=== PATIENT | male | born 1995 | race African-American/Black ===

== ENCOUNTER 2016-12-17 18:16 | Emergency (ER) ==
[2016-12-17] MEDS ORDERED: NS 1,000 ML IV ONE ×2 (19:57→22:25)
--- NOTE | 2016-12-17 20:20 | PROVIDER DOCUMENTATION ---
HPI-Abdominal Pain/GI Problem - General Chief Complaint: N/V/D Stated Complaint: ABD PAIN, N/V/D Time Seen by Provider: 12/17/16 19:55 Source: patient Allergies/Adverse Reactions: Patient Allergies Allergy/AdvReac Type Severity Reaction Status Date / Time No Known Allergies Allergy Verified 12/17/16 20:22 Home Medications: Home Medication List Medication Instructions Recorded Confirmed Last Taken Type No Home Medications 12/17/16 12/17/16 Unknown History - History of Present Illness-ABD Nature of Presenting Problems: Pt is a 21 yom who presents to ER with CC of N/V/D with onset this am. Pt reports that he woke up with epigastric pain, started to vomit and have diarrhea. Pt reports that his diarrhea was originally green, but has since turned more clear/yellow. Pt did not specify number of vomit/diarrhea episodes. Pt denies F/chills, or sick contacts. Abdominal Pain Onset Location: reports: epigastric Pain Radiation: reports: no radiation Quality of Pain: reports: aching, cramping Severity in ED: reports: mild Onset/Duration: reports: this morning Timing: reports: intermittent Activities at Onset: reports: rest, sleep Associated Symptoms: reports: diarrhea, loss of appetite, muscle aches, nausea, vomiting. denies: anxiety, arm pain, back/neck pain, chest pain, constipation, cough, diaphoresis, dizziness, EENT symptoms, fatigue, fever/chills, genitourinary problems, headaches, heartburn, joint pain, malaise, sinus congestion/drainage, rash, seizure, shortness of breath, sensory/motor loss, pain with inspiration, swelling/mass in abdomen, syncope, weakness, trouble walking Last BM: other (prior to exam) Dark Stools Present?: reports: none noticed Rectal Bleeding: reports: none Rectal Pain: reports: none Emesis Description: reports: none Review of Systems - Adult - REVIEW OF SYSTEMS - ADULT Constitutional: denies: chills, fever, fatique, night sweats, weight gain, weight loss Eyes: reports: no symptoms reported Ears, Nose, Mouth & Throat: denies: ear discharge, ear pain, hearing loss, sinus problem, nose pain, hoarseness, throat pain, throat swelling Cardiovascular: reports: no symptoms reported Respiratory: denies: cough, dyspnea on exertion, excessive sputum production, shortness of breath, wheezing Gastrointestinal: reports: abdominal pain, diarrhea, nausea, poor appetite, vomiting. denies: hematemesis, constipation, difficulty swallowing, frequent heartburn, rectal bleeding Genitourinary: reports: no symptoms reported Musculoskeletal: reports: no symptoms reported Integumentary: reports: no symptoms reported Neurological: reports: no symptoms reported Psychiatric: reports: no symptoms reported Endocrine: reports: no symptoms reported Hematologic/Lymphatic: reports: no symptoms reported Allergic/Immunologic: reports: no symptoms reported All Other Systems: Reviewed and Negative Past History - Adult - PAST MEDICAL HISTORY-ADULT Review of Records: reports: Nursing Assessment Review, Medications Reviewed Musculoskeletal: reports: orthopedic injury - IMMUNIZATION STATUS Childhood Immunizations: See Nurse Assessment Flu Vaccine: See Nurse Assessment Physical Exam-General - PHYSICAL EXAM-ADULT Initial Vital Signs Reviewed: Yes - CONSTITUTIONAL General Appearance: appears well, alert, no apparent distress, lethargic, slow to respond. negative: mild distress, moderate distress, severe distress, cachetic, obese, thin, anxious, obtunded, combative - NECK Neck: non-tender, full range of motion, supple. negative: C-spine tenderness, limited range of motion, lymphadenopathy - RESPIRATORY Respiratory: chest non-tender, lungs clear, normal breath sounds. negative: respiratory distress, decreased breath sounds, accessory muscle use, wheezing - CARDIOVASCULAR Cardiovascular: normal peripheral pulses, regular rate, rhythm. negative: bradycardia, tachycardia - GASTROINTESTINAL (ABDOMEN) Abdominal Exam: normal bowel sounds, soft, tenderness (epigastric). negative: non tender, abnormal bowel sounds, mass - NEUROLOGIC Neurologic: grossly normal, no motor/sensory deficits - PSYCHIATRIC Psych/Mental Status: normal thought content, normal thought process, oriented x 3, depressed affect. negative: normal mood/affect Progress - PLAN OF CARE/RESULTS Progress/Plan/Lab Results: Vital Signs - 24 hr 12/17/16 12/17/16 18:17 22:54 Temperature 97.6 F 99.4 F Pulse Rate 89 75 Respiratory 16 16 Rate Blood Pressure 114/63 111/58 O2 Sat by Pulse 98 100 Oximetry Orders Category Date Time Status Saline Loc DIRECTED Care 12/17/16 19:56 Active NPO Diet 12/17/16 19:[address] ABD/PELVIS W/ IV CONT ONLY [CT] Stat Exams 12/17/16 19:56 Taken AMYLASE [CHEM] Stat Lab 12/17/16 20:15 Completed CBC WITH ELECTRONIC DIFF [HEME] Stat Lab 12/17/16 20:15 Completed COMPREHENSIVE METABOLIC PANEL [CHEM] Stat Lab 12/17/16 20:15 Completed LIPASE [CHEM] Stat Lab 12/17/16 20:15 Completed MAGNESIUM [CHEM] Stat Lab 12/17/16 20:15 Completed 0.9% Sodium Chloride Inj [Ns] 1,000 ml Med 12/17/16 19:57 Discontinued IV 999 mls/hr 0.9% Sodium Chloride Inj [Ns] 1,000 ml Med 12/17/16 22:25 Discontinued IV 999 mls/hr Laboratory Tests 12/17/16 12/17/16 12/17/16 20:15 20:15 22:30 WBC 6.61 RBC 5.47 Hgb 16.7 Hct 48.6 MCV 88.8 MCH 30.5 MCHC 34.4 RDW Std Deviation 12.1 Plt Count 184 MPV 12.5 H Immature Gran % (Auto) 0.0 Neut % (Auto) 80.9 H Lymph % (Auto) 11.8 L [place] % (Auto) 4.7 Eos % (Auto) 1.8 Baso % (Auto) 0.8 Immature Gran # (Auto) 0.00 Neut # (Auto) 5.35 Lymph # (Auto) 0.78 L [place] # (Auto) 0.31 Eos # (Auto) 0.12 Baso # (Auto) 0.05 Sodium 142 Potassium 4.3 Chloride 106 Carbon Dioxide 22 L Anion Gap 14 BUN 18 Creatinine 1.0 Estimated GFR/1.73 m2 > 60 BUN/Creatinine Ratio 18 Glucose 87 Calculated Osmolality 284 Calcium 9.1 Magnesium 1.9 Total Bilirubin 1.44 H AST 16 ALT 14 Alkaline Phosphatase 53 Total Protein 8.2 Albumin 4.7 Globulin 3.5 Albumin/Globulin Ratio 1.3 Amylase 62 Lipase 19 Urine Source CATH Urine Color YELLOW Urine Clarity CLEAR Urine pH 5.5 Ur Specific [place] <= 1.005 Urine Protein NEGATIVE Urine Ketones NEGATIVE Urine Blood NEGATIVE Urine Nitrite NEGATIVE Urine Bilirubin NEGATIVE Urine Urobilinogen 0.2 Urine WBC NEGATIVE Urine Glucose NEGATIVE - REASSESSMENT Reassessment #1 Time Reassessed: 23:44 Status: improving (Pt reports that he no longer feels nauseas, has not vomited or had diarrhea since. Pt reports that he feels good to go home.) - CT/MRI 1 CT Study: Abdomen, Pelvis Impression: See EMR Report CT Results: NAP Departure - Departure Time of Disposition Order: 23:45 DIAGNOSIS: Gastroenteritis Disposition: HOME 01 Certified Medical Emergency: Emergent Condition: Stable Additional Instructions: ED Follow Up Instructions: You have been treated by a care provider in the Emergency Department. These instructions are being provided to you so you can have an understanding of how to care for yourself upon discharge. Upon discharge from the Emergency Department, you are responsible for making arrangements for follow-up care by a physician of your choice. Take all prescribed medications as directed. Return to the Emergency Department immediately for any new or worsening symptoms. You may call the Physician Referral phone number at [phone] to obtain a list of Physicians who are taking new patients. Attestation - Scribe Verification/Attestation Scribe:: Brian Mathis Acting as Scribe for:: Rambo Bejarano Scribe documention review:: This chart was documented by a scribe and accurately reflects the service the provider performed and the decisions made by the provider.
[2016-12-17 20:30] LABS: MANUAL DIFF NEEDED? NO
[2016-12-17 20:42] LABS: BASO% 0.8 % (0.0-0.8); EOS# 0.12 X1000 (0.0-0.7); EOS% 1.8 % (0.0-10.0); HEMATOCRIT 48.6 % (42.0-52.0); HEMOGLOBIN 16.7 g/dL (14.0-18.0); LYMPH# 0.78 X1000 (1.2-3.4); LYMPH% 11.8 % (20.5-51.1); MCH 30.5 PG (27-31); MCHC 34.4 g/dL (33-37); MCV 88.8 FL (81-99); MONO# 0.31 X1000 (0.11-0.59); MONO% 4.7 % (1.7-9.3); MPV 12.5 FL (7.4-10.4); NEUT% 80.9 % (42.2-75.2); PLT 184 X1000 (130-400); RBC 5.47 XMIL (4.7-6.1)
[2016-12-17 20:55] LABS: AGAP 14; ALBUMIN 4.7 g/dL (3.5-5.0); ALKALINE PHOSPHATASE 53 U/L (32-122); AMYLASE 62 U/L (20-200); BUN 18 mg/dL (8-22); CALCIUM 9.1 mg/dL (8.8-10.2); CHLORIDE 106 mmol/L (98-107); COSMO 284; GOT 16 U/L (10-34); GPT 14 U/L (10-44); LIPASE 19 U/L (13-60); MAGNESIUM 1.9 mg/dL (1.5-2.7); POTASSIUM 4.3 mmol/L (3.5-5.1); SODIUM 142 mmol/L (136-145); TCO2 22 mmol/L (25-35); TOTAL BILIRUBIN 1.44 mg/dL (0.20-1.00); TOTAL PROTEIN 8.2 g/dL (6.3-8.3)
[2016-12-17 22:37] LABS: URINE CULTURE NEEDED? NO; URINE SOURCE CATH
[2016-12-17 22:41] LABS: BILIRUBIN URINE NEGATIVE (NEGATIVE); BLOOD URINE NEGATIVE (NEGATIVE); CLARITY CLEAR (CLEAR); COLOR YELLOW; GLUCOSE URINE NEGATIVE (NEGATIVE); LEUKOCYTES URINE NEGATIVE (NEGATIVE); NITRITE URINE NEGATIVE (NEGATIVE); PH URINE 5.5; PROTEIN URINE NEGATIVE (NEGATIVE); SP GRAVITY URINE <= 1.005; UROBILINOGEN URINE 0.2 EU/dL (0.2-1.0)
[2016-12-17 22:58] VITALS: BP 111/58
--- NOTE | 2016-12-18 09:10 | Diag Imaging Result Document ---
PROCEDURE NAME: CT ABD/PELVIS W/ IV CONT ONLY - 12/17/2016 CT ABDOMEN AND PELVIS WITH INTRAVENOUS CONTRAST, 12/17/2016: A CT dose reduction protocol was used. COMPARISON: None. FINDINGS: The lung bases are clear. Heart size is normal. The liver, gallbladder, spleen, pancreas, adrenals, and kidneys are normal. No bowel obstruction or inflammation. Urinary bladder, prostate, and rectum are normal. There is mild levo curvature and rotary scoliosis of the thoracolumbar spine. No acute bony lesions. IMPRESSION: No acute disease. [facility]
== END 2016-12-17 23:52 | disposition home or self-care (01) ==
LOC: ED 18:16
DX: K52.9 Noninfective gastroenteritis and colitis, unspecified (principal); R11.2 Nausea with vomiting, unspecified; R19.7 Diarrhea, unspecified; R10.13 Epigastric pain; M79.1 Myalgia; R53.83 Other fatigue; R10.816 Epigastric abdominal tenderness
CPT/HCPCS: 74177; 80053; 81001; 82150; 83690; 83735; 85025; J7030; Q9967

== ENCOUNTER 2016-12-19 20:25 | Emergency (ER) ==
[2016-12-19] MEDS ORDERED: MOTRIN PO ONE (21:26)
[2016-12-19] MEDS ORDERED: NORCO-5 PO ONE (21:27)
--- NOTE | 2016-12-19 21:30 | PROVIDER DOCUMENTATION ---
HPI-Musculoskeletal Pain/Inj <Abhinav Escobar - Last Filed: 12/19/16 21:27> - GENERAL Source: patient - HX OF PRESENT ILLNESS-MUSKULOSKELTAL Quality of Pain: reports: aching Severity in ED: moderate Onset/Duration: 1-3 hours ago Timing: still present Modifying Factors: improves with: nothing Any recent injury?: No Locality of Occurance: Other (basketball court) Similar Symptoms Previously?: No Recently seen or treated by another doctor?: No - LOWER EXTREMITY PAIN/INJURY Lower Extremities Pain: knee: left Context / Method of Injury: reports: unknown Associated Symptoms: reports: denies symptoms <Kenzie Clark - Last Filed: 12/19/16 21:35> - GENERAL Chief Complaint: Extremity Pain Stated Complaint: LT KNEE INJURY @1800 Time Seen by Provider: 12/19/16 21:17 - HX OF PRESENT ILLNESS-MUSKULOSKELTAL Nature of Presenting Problem: 21 year old M presents to the ED with a cc of left knee pain with an onset of 1800. PT states that he was playing basketball tonight and felt a pop. PT states that he can walk a few steps and then he becomes weak. PT states that he has been having pain in that knee for the past few months and has been working out in the gym to help with the pain. (Kenzie Clark) Review of Systems - Adult - REVIEW OF SYSTEMS - ADULT Constitutional: denies: chills, fever Eyes: reports: no symptoms reported Ears, Nose, Mouth & Throat: reports: no symptoms reported Cardiovascular: reports: no symptoms reported Respiratory: reports: no symptoms reported Gastrointestinal: denies: nausea, vomiting Genitourinary: reports: no symptoms reported Musculoskeletal: reports: joint pain. denies: muscle weakness Integumentary: denies: skin sores/ulcer, skin thickening Neurological: reports: no symptoms reported Psychiatric: reports: no symptoms reported Endocrine: reports: no symptoms reported Hematologic/Lymphatic: reports: no symptoms reported Allergic/Immunologic: reports: no symptoms reported All Other Systems: Reviewed and Negative <Kenzie Clark - Last Filed: 12/19/16 21:35> Past History - Adult - PAST MEDICAL HISTORY-ADULT Musculoskeletal: reports: orthopedic injury - IMMUNIZATION STATUS Childhood Immunizations: See Nurse Assessment Flu Vaccine: See Nurse Assessment <Abhinav Escobar - Last Filed: 12/19/16 21:27> - PAST MEDICAL HISTORY-ADULT Review of Records: reports: Nursing Assessment Review, Medications Reviewed Major Childhood Illnesses: reports: denies history - PRIOR SURGERIES/PROCEDURES Surgical/Procedure History: reports: none - IMMUNIZATION STATUS Childhood Immunizations: See Nurse Assessment Flu Vaccine: See Nurse Assessment - SOCIAL HISTORY Smoking: non-smoker Substance Use: none/never Alcohol Use Frequency: rarely <Kenzie Clark - Last Filed: 12/19/16 21:35> Physical Exam-Injury Related - Physical Exam-Injury Related Initial Vital Signs Reviewed: Yes General Appearance: appears well, alert, no apparent distress Respiratory: no respiratory distress Cardiovascular: regular rate, rhythm Extremity: tenderness (left patella) Integumentary: normal color, warm/dry Psych/Mental Status: normal mood/affect, normal thought content, normal thought process, oriented x 3 <Kenzie Clark - Last Filed: 12/19/16 21:35> Progress - XRAY 1 XRAY: Left XRAY Study: Knee Impression: Abnormal XRAY Interpretation: patellar fx: Dr. Escobar(ER MD) <Kenzie Clark - Last Filed: 12/19/16 21:35> Departure - Departure Time of Disposition Order: 21:27 Certified Medical Emergency: Emergent <Abhinav Escobar - Last Filed: 12/19/16 21:27> <Kenzie Clark - Last Filed: 12/19/16 21:35> - Departure DIAGNOSIS: Left patella fracture Disposition: HOME 01 Condition: Fair Additional Instructions: call Dr Best the bone doctor to make a follow up visit ED Follow Up Instructions: You have been treated by a care provider in the Emergency Department. These instructions are being provided to you so you can have an understanding of how to care for yourself upon discharge. Upon discharge from the Emergency Department, you are responsible for making arrangements for follow-up care by a physician of your choice. Take all prescribed medications as directed. Return to the Emergency Department immediately for any new or worsening symptoms. You may call the Physician Referral phone number at [phone] to obtain a list of Physicians who are taking new patients. Prescriptions: Ibuprofen [Motrin] 800 mg PO Q8H PRN PRN #30 tablet PRN Reason: Pain Hydrocodone/Acetaminophen [[place] 5-325 Tablet] 1 each PO Q4-6H PRN PRN #12 tablet PRN Reason: Pain Referrals: Eleni Pardo [Primary Care Provider] - Rosalinda Freeman MD [STAFF PHYSICIAN] - Attestation - Scribe Verification/Attestation Scribe:: Kenzie Clark Acting as Scribe for:: Abhinav Escobar Scribe documention review:: This chart was documented by a scribe and accurately reflects the service the provider performed and the decisions made by the provider. <Kenzie Clark - Last Filed: 12/19/16 21:35> Physician Attestation
[2016-12-19 21:38] VITALS: BP 111/82
--- NOTE | 2016-12-20 08:11 | Diag Imaging Result Document ---
PROCEDURE NAME: KNEE 3 VIEWS LEFT - 12/19/2016 LEFT KNEE, 4 VIEWS: COMPARISON: None. FINDINGS: There is a minimally displaced transverse fracture through the patella. There is a moderate joint effusion. IMPRESSION: Patella fracture.
== END 2016-12-19 22:11 | disposition home or self-care (01) ==
LOC: ED 20:25
DX: S82.002A Unspecified fracture of left patella, initial encounter for closed fracture (principal); M25.562 Pain in left knee; R53.1 Weakness; X58.XXXA Exposure to other specified factors, initial encounter